=== PATIENT | female | born 1975 | race American Indian/Alaskan Native ===

== ENCOUNTER 2019-07-18 09:49 | Emergency (ER) | payer SELFPAY ==
[2019-07-18] MEDS ORDERED: ASPIRIN 325 MG TAB PO ONE (09:56)
--- NOTE | 2019-07-18 10:29 | Emergency Department Report ---
<JAIR MOORE - Last Filed: 07/18/19 17:51> ED Chest Pain HPI - General Chief Complaint: Chest Pain Stated Complaint: CHEST PAIN/PRESSURE Time Seen by Provider: 07/18/19 10:27 Source: patient Mode of arrival: Ambulatory Limitations: No Limitations - History of Present Illness Initial Comments: 43-year-old -[place] female patient with history of hypothyroidism presents with complaints of substernal and left-sided chest pain 4 days. She describes the pain as a tightness and pressure/ache and rates the pain currently at a 7/10 in severity. She denies any history of PR/CVA/DVT/PE, recent long travel, leg pain/swelling, or family history of heart disease. She states the pain worsens with deep inspiration and with lying down. She also states some mild shortness of breath and says it feels like she can't take a deep breath. Patient also denies any hormone therapy, cough, or fever. She states she does feel like she has congestion in her chest. Denies history of smoking or asthma MD Complaint: chest pain -: Sudden Pain Location: substernal, left chest Quality: tightness, aching, pressure Improves With: remaining still Worsens With: inspiration, supine re: denies: nausea, vomting Other Symptoms: denies: cough, fever, syncope Treatments Prior to Arrival: none - Related Data Previous Rx's Medication Instructions Recorded Last Taken Type Acetaminophen/Codeine [Tylenol 1 tab PO Q6H PRN #12 tab 07/18/19 Unknown Rx /Codeine # 3 tab] Allergies Allergy/AdvReac Type Severity Reaction Status Date / Time No Known Allergies Allergy Verified 07/18/19 10:28 Heart Score - HEART Score History: Slightly suspicious EKG: Non-specific Age: 45-65 Risk factors: No known risk factors Troponin: < normal limit HEART Score: 2 - Critical Actions Critical Actions: 0-3 pts:0.9-1.7%risk of adverse cardiac event.Candidate for discharge ED Review of Systems Constitutional: denies: chills, fever Eyes: denies: vision change ENT: denies: throat pain Respiratory: shortness of breath. denies: cough, SOB with exertion, wheezing Cardiovascular: chest pain Gastrointestinal: denies: abdominal pain, nausea, vomiting Genitourinary: denies: frequency Musculoskeletal: denies: back pain, joint swelling, arthralgia Skin: denies: rash, lesions Neurological: denies: headache, weakness, paresthesias ED Past Medical Hx - Past Medical History Previous Medical History?: Yes Additional medical history: Hypothyroidism - Surgical History Past Surgical History?: Yes Additional Surgical History: C section - Social History Smoking Status: Never Smoker - Medications Home Medications: Home Medications Medication Instructions Recorded Confirmed Last Taken Type Acetaminophen/Codeine [Tylenol 1 tab PO Q6H PRN #12 tab 07/18/19 Unknown Rx /Codeine # 3 tab] ED Physical Exam - General Limitations: No Limitations General appearance: alert, in no apparent distress - Head Head exam: Present: atraumatic, normocephalic - Eye Eye exam: Present: normal appearance. Absent: scleral icterus - ENT ENT exam: Present: mucous membranes moist - Neck Neck exam: Present: normal inspection - Respiratory Respiratory exam: Present: normal lung sounds bilaterally. Absent: respiratory distress, wheezes, rales, rhonchi - Cardiovascular Cardiovascular Exam: Present: regular rate, normal rhythm. Absent: systolic murmur, diastolic murmur, rubs, gallop - GI/Abdominal GI/Abdominal exam: Present: soft, normal bowel sounds. Absent: tenderness - Extremities Exam Extremities exam: Absent: pedal edema, joint swelling, calf tenderness - Back Exam Back exam: Present: normal inspection. Absent: tenderness, CVA tenderness (R) - Neurological Exam Neurological exam: Present: alert, oriented X3 - Psychiatric Psychiatric exam: Present: normal affect, normal mood - Skin Skin exam: Present: warm, dry, intact, normal color. Absent: rash ED Medical Decision Making - Lab Data Result diagrams: 07/18/19 10:16 07/18/19 10:16 Lab Results 07/18/19 07/18/19 07/18/19 Range/Units 10:16 10:16 11:12 WBC 5.3 (4.5-11.0) K/mm3 RBC 4.21 (3.65-5.03) M/mm3 Hgb 13.0 (10.1-14.3) gm/dl Hct 39.4 (30.3-42.9) % MCV 94 (79-97) fl MCH 31 (28-32) pg MCHC 33 (30-34) % RDW 13.3 (13.2-15.2) % Plt Count 262 (140-440) K/mm3 Lymph % (Auto) 29.3 (13.4-35.0) % Swisher % (Auto) 11.0 H (0.0-7.3) % Eos % (Auto) 0.9 (0.0-4.3) % Baso % (Auto) 0.3 (0.0-1.8) % Lymph # 1.6 (1.2-5.4) K/mm3 Swisher # 0.6 (0.0-0.8) K/mm3 Eos # 0.0 (0.0-0.4) K/mm3 Baso # 0.0 (0.0-0.1) K/mm3 Seg Neutrophils % 58.5 (40.0-70.0) % Seg Neutrophils # 3.1 (1.8-7.7) K/mm3 Sodium 142 (137-145) mmol/L Potassium 3.7 (3.6-5.0) mmol/L Chloride 103.8 (98-107) mmol/L Carbon Dioxide 22 (22-30) mmol/L Anion Gap 20 mmol/L BUN 9 (7-17) mg/dL Creatinine 0.5 L (0.7-1.2) mg/dL Estimated GFR > 60 ml/min BUN/Creatinine Ratio 18 % Glucose 126 H (65-100) mg/dL Calcium 8.9 (8.4-10.2) mg/dL Troponin T < 0.010 (0.00-0.029) ng/mL TSH 0.478 (0.270-4.200) mlU/mL 07/18/19 Range/Units 12:38 WBC (4.5-11.0) K/mm3 RBC (3.65-5.03) M/mm3 Hgb (10.1-14.3) gm/dl Hct (30.3-42.9) % MCV (79-97) fl MCH (28-32) pg MCHC (30-34) % RDW (13.2-15.2) % Plt Count (140-440) K/mm3 Lymph % (Auto) (13.4-35.0) % Swisher % (Auto) (0.0-7.3) % Eos % (Auto) (0.0-4.3) % Baso % (Auto) (0.0-1.8) % Lymph # (1.2-5.4) K/mm3 Swisher # (0.0-0.8) K/mm3 Eos # (0.0-0.4) K/mm3 Baso # (0.0-0.1) K/mm3 Seg Neutrophils % (40.0-70.0) % Seg Neutrophils # (1.8-7.7) K/mm3 Sodium (137-145) mmol/L Potassium (3.6-5.0) mmol/L Chloride (98-107) mmol/L Carbon Dioxide (22-30) mmol/L Anion Gap mmol/L BUN (7-17) mg/dL Creatinine (0.7-1.2) mg/dL Estimated GFR ml/min BUN/Creatinine Ratio % Glucose (65-100) mg/dL Calcium (8.4-10.2) mg/dL Troponin T < 0.010 (0.00-0.029) ng/mL TSH (0.270-4.200) mlU/mL - Radiology Data Radiology results: report reviewed CHEST 1 VIEW 07/18/2019 10:33 AM INDICATION / CLINICAL INFORMATION: Chest Pain. COMPARISON: 2 views of the chest from 02/11/2011 FINDINGS: SUPPORT DEVICES: None. HEART / MEDIASTINUM: No significant abnormality. LUNGS / PLEURA: No significant pulmonary or pleural abnormality. No pneumothorax. ADDITIONAL FINDINGS: No significant additional findings. IMPRESSION: No acute abnormality of the chest. - Medical Decision Making 43-year-old female patient with history of hypothyroidism since with complaints of chest pain that worsens with deep inspiration. Heart score equals 2. Initial and repeat troponin and EKG are without acute findings. Labs are WNL. Exam is benign. Perc Score = 0. Discussed pt with Dr. Lisa-recommended D dimer given pain worsens with deep inspiration. D-dimer positive. CT angiogram results pending. Patient's vitals remain wnl. Patient handed off to Layo Andino PA-C pending CTA results. ED Disposition Clinical Impression: Chest pain Qualifiers: Chest pain type: other chest pain Qualified Code(s): R07.89 - Other chest pain Disposition: - TO HOME OR SELFCARE Condition: Stable Instructions: Acetaminophen/Codeine (By mouth), Chest Pain (ED) Additional Instructions: Follow-up with a parts facilitator doctor in 2 days or if symptoms worsen and continue return to emergency room as soon as possible. Do not operate any machinery while taking Tylenol with codeine as this may cause drowsiness. Prescriptions: Acetaminophen/Codeine [Tylenol /Codeine # 3 tab] 1 tab PO Q6H PRN #12 tab PRN Reason: Pain , Severe (7-10) Referrals: PAMELLA FAUSTIN MD [Staff Physician] - 2-3 Days PRIMARY CARE, [Primary Care Provider] - 3-5 Days [facility] [Outside] - 3-5 Days [facility] [Outside] - 3-5 Days Forms: Work/School Release Form(ED) <LAYO ANDINO - Last Filed: 07/18/19 19:14> ED Review of Systems ROS: Stated complaint: CHEST PAIN/PRESSURE Other details as noted in HPI ED Course Vital Signs 07/18/19 09:57 Temperature 98.2 F Pulse Rate 91 H Respiratory 16 Rate Blood Pressure 127/78 [Right] O2 Sat by Pulse 97 Oximetry ED Medical Decision Making - Lab Data Result diagrams: 07/18/19 10:16 07/18/19 10:16 - Medical Decision Making Patient was originally seen by Elizabeth Adam and signed out to me for a pending CT angiogram. CT angiogram has been obtained and dictated by radiologist with no PE. As per Jair patient can be discharged if CTA is within normal limits. Vital signs are stable prior to discharge. Patient was notified of the results with no questions noted by the patient. Chest xray dictated by the radiologist. PAtient is notified of the Xray report with no questions noted. Labs within normal limits. Negative troponin x3. EKG normal sinus rhythm with no ST abnormalities. He was reexamined and stated that symptoms of pain has resolved and subsided. Patient stated that she feels much better and is ready for Patient was instructed to Follow-up with a parts facilitator doctor in 3-5 days or if symptoms worsen and continue return to emergency room as soon as possible. At time of discharge, the patient does not seem toxic or ill in appearance. No acute signs of distress noted. Patient agrees to discharge treatment plan of care. No further questions noted by the patient. - Differential Diagnosis STEMI, NSTEMI, atypical chest pain, GERD, PE Critical care attestation.: If time is entered above; I have spent that time in minutes in the direct care of this critically ill patient, excluding procedure time. ED Disposition Is pt being admited?: No Does the pt Need Aspirin: No
[2019-07-18 11:07] LABS: Basophils % (Auto) 0.3 % (0.0-1.8); Eosinophils % (Auto) 0.9 % (0.0-4.3); Hematocrit 39.4 % (30.3-42.9); Lymphocytes # (Auto) 1.6 K/mm3 (1.2-5.4); Lymphocytes % (Auto) 29.3 % (13.4-35.0); Mean Corpuscular HGB Conc 33 % (30-34); Mean Corpuscular Volume 94 fl (79-97); Monocytes # (Auto) 0.6 K/mm3 (0.0-0.8); Platelet Count 262 K/mm3 (140-440); Red Blood Count 4.21 M/mm3 (3.65-5.03); Red Cell Distribution Width 13.3 % (13.2-15.2)
--- NOTE | 2019-07-18 11:09 | XRay Report ---
CHEST 1 VIEW 07/18/2019 10:33 AM INDICATION / CLINICAL INFORMATION: Chest Pain. COMPARISON: 2 views of the chest from 02/11/2011 FINDINGS: SUPPORT DEVICES: None. HEART / MEDIASTINUM: No significant abnormality. LUNGS / PLEURA: No significant pulmonary or pleural abnormality. No pneumothorax. ADDITIONAL FINDINGS: No significant additional findings. IMPRESSION: No acute abnormality of the chest. Signer Name: Rah Islas MD Signed: 07/18/2019 11:05 AM Workstation Name: [id number]
[2019-07-18 11:18] LABS: BUN/Creatinine Ratio 18; Blood Urea Nitrogen 9 mg/dL (7-17); Calcium 8.9 mg/dL (8.4-10.2); Hemolysis Index 7
[2019-07-18 15:10] LABS: INR 1.13 (0.87-1.13); Partial Thromboplastin Time 29.7 Sec. (24.2-36.6)
--- NOTE | 2019-07-18 18:07 | Cat Scan Report ---
CTA CHEST WITH IV CONTRAST INDICATION: chest pain, SOB, x 3 days+ dimer. TECHNIQUE: Axial CT images were obtained through the chest after injection of 100 cc Omnipaque 350 IV contrast. 3 plane MIP reconstructions were produced. All CT scans at this location are performed using CT dose reduction for ALARA by means of automated exposure control. COMPARISON: None available. FINDINGS: PULMONARY ARTERIES: No pulmonary emboli. THORACIC AORTA: No acute abnormality. HEART: Normal. CORONARY ARTERIES: No significant calcification. PLEURA: No pleural effusion. No pneumothorax. LYMPH NODES: No significant adenopathy. LUNGS: No acute air space or interstitial disease. Linear bibasilar atelectasis. ADDITIONAL FINDINGS: None. UPPER ABDOMEN: Enlarged liver with decreased attenuation characteristic for hepatic steatosis. No acu te findings. SKELETAL STRUCTURES: No significant osseous abnormality. IMPRESSION: 1. No CT evidence for pulmonary embolism. 2. No acute findings. 3. Hepatic steatosis. Signer Name: Erwin Ortiz MD Signed: 07/18/2019 6:02 PM Workstation Name: [id number]
[2019-07-18 19:20] VITALS: BP 116/70
== END 2019-07-18 19:11 | disposition home or self-care (01) ==
LOC: ED 09:49
DX: R07.2 Precordial pain (principal); E03.9 Hypothyroidism, unspecified; Z79.899 Other long term (current) drug therapy
CPT/HCPCS: 36415; 71045; 71275; 80048; 84443; 84484; 85025; 85379; 85610; 85730; 93005; 93010; 99285; Q9967